=== PATIENT | male | born 1955 | race Caucasian/White ===

== ENCOUNTER 2020-02-21 06:52 | Emergency (ER) | payer MEDICARE, OTHER ==
[~2020-02-21] VITALS: Ht 180.3 cm; Wt 106.6 kg
[2020-02-21] MEDS ORDERED: PRINIVIL10 MG PO (07:06)
[2020-02-21] MEDS ORDERED: CEFDINIR300 MG PO (07:41)
[2020-02-21] MEDS ORDERED: MELOXICAM15 MG PO (07:41)
[2020-02-21] MEDS ORDERED: MEDROLDOSEPACK PO (08:06)
[2020-02-21 08:25] VITALS: BP 152/111
== END 2020-02-21 08:26 | disposition home or self-care (01) ==
LOC: M.ERS 06:52
DX: L03.116 Cellulitis of left lower limb (principal); L02.416 Cutaneous abscess of left lower limb; M25.475 Effusion, left foot; I10 Essential (primary) hypertension; Z88.0 Allergy status to penicillin; Z96.642 Presence of left artificial hip joint

== ENCOUNTER 2020-11-27 21:26 | Emergency (ER) | payer MEDICARE ==
[~2020-11-27] VITALS: Ht 180.3 cm; Wt 108.9 kg
[~2020-11-27 21:26] MED LIST: CEFDINIR300 MG PO; MEDROLDOSEPACK PO; MELOXICAM15 MG PO; PRINIVIL10 MG PO
[2020-11-27] MEDS ORDERED: HYDROCODON-ACE1 EAC8 PO (23:26)
[2020-11-27 23:40] VITALS: BP 112/82
== END 2020-11-27 23:40 | disposition home or self-care (01) ==
LOC: M.ERS 21:26
DX: S82.821A Torus fracture of lower end of right fibula, initial encounter for closed fracture (principal); I10 Essential (primary) hypertension; Z98.890 Other specified postprocedural states; X50.1XXA Overexertion from prolonged static or awkward postures, initial encounter; Y93.89 Activity, other specified; Y92.89 Other specified places as the place of occurrence of the external cause; Y99.8 Other external cause status

== ENCOUNTER → 2021-06-29 | Outpatient (CLI) | payer OTHER ==
[~2021-06-29] MED LIST changes: +HYDROCODON-ACE1 EAC8 PO
== END ==
LOC: M.CT 13:56
PROVIDERS: ATTEND Nurse Practitioner Family
DX: Z13.6 Encounter for screening for cardiovascular disorders (principal); I25.10 Atherosclerotic heart disease of native coronary artery without angina pectoris